=== PATIENT | female | born 1960 | race Caucasian/White ===

== ENCOUNTER → 2016-11-09 | Outpatient (CLI) | payer BC ==
--- NOTE | 2016-11-09 14:45 | REP ---
Clinical: Postmenopausal bleeding . Technique: Transabdominal pelvic ultrasound followed by transvaginal examination for better evaluation of the endometrium and adnexa. Findings: Bladder is unremarkable and measures 10.1 x 9.7 x 7.0 cm . Normal retroverted uterus measures 7.5 x 4.3 x 4.4 cm. The endometrial complex measures 7.4 mm thickness. No discrete uterine or endometrial abnormalities are appreciated. Bilateral ovaries are normal in appearance and vascularity without evidence for torsion. Right ovary measures 1.9 x 1.4 x 1.9 cm. Left ovary measures 2.2 x 1.0 x 1.7 cm. No pelvic fluid or adnexal mass lesion. Impression: Minimally thickened endometrial complex without discrete abnormality. Findings may be secondary to hormone replacement therapy require correlation.
== END ==
LOC: M WHC 10:22
PROVIDERS: ATTEND Family Medicine
DX: N95.0 Postmenopausal bleeding (principal)

== ENCOUNTER → 2016-11-30 | Outpatient (REF) | payer BC | LOC: M SFHCWAGY 14:26 | PROVIDERS: ATTEND Family Medicine | DX: N95.0 Postmenopausal bleeding (principal) ==

== ENCOUNTER → 2017-01-11 | Day surgery (SDC) | payer BC ==
[~2017-01-11] VITALS: Ht 172.7 cm; Wt 69.4 kg
[~2017-01-11] MED LIST: LIDOCAINE 1% SDV 5 ML VIAL SQ ONE; LIDOCAINE 2% INJ 100 MG/5 ML SDV (FOR ANES.) As Ordered ONE; LR 1,000 ML IV ONE; LR 1,000 ML IV SCH; MIDAZOLAM INJ 2 MG/2 ML VIAL (J2250) As Ordered ONE; MULT1TAB10 PO; ONDANSETRON 4MG/2ML VIAL (J2405) As Ordered ONE; ONDANSETRON 4MG/2ML VIAL (J2405) IV PRN; PERCOCET 5MG/325MG TAB PO PRN; PROPOFOL 200 MG/20 ML VIAL As Ordered ONE; SYNT100T PO; ZYRT10CA PO; dexameTHASONE 4 MG/ML 1ML VIAL (J1100) As Ordered ONE; fentaNYL 100 MCG/2 ML INJECTION (J3010) As Ordered ONE; fentaNYL 100 MCG/2 ML INJECTION (J3010) IV PRN
[2017-01-11 12:29] LABS: MEAN CORPUSCULAR HEMOGLOBIN 32.2 pg (27.0-33.0); MEAN CORPUSCULAR HGB CONC 33.9 g/dl (32.0-36.5); MEAN CORPUSCULAR VOLUME 95.1 fl (80.0-96.0); RED CELL DISTRIBUTION WIDTH 12.7 % (11.5-14.5); WHITE BLOOD COUNT 4.8 K/mm3 (4.0-10.0)
[2017-01-11 17:05] VITALS: BP 150/69
--- NOTE | 2017-01-13 08:30 | RO ---
DATE OF PROCEDURE: 01/11/2017 PREOPERATIVE DIAGNOSIS: Postmenopausal bleeding. POSTOPERATIVE DIAGNOSIS: Postmenopausal bleeding. PROCEDURE PERFORMED: Diagnostic hysteroscopy dilatation and curettage. SURGEON: Porter Boston DO DATA KEYER: None. ANESTHESIA TYPE: General via LMA. SPECIMENS SENT TO PATHOLOGY: Intrauterine tissue/curettings, scant amount of tissue obtained. ESTIMATED BLOOD LOSS: Less than 5 mL. FLUIDS REPLACED: 1 liter of Lactated Ringer's. DRAINS: In and out catheter, 100 mL urine output. COMPLICATIONS: None. PREOPERATIVE ANTIBIOTICS: None indicated. INTRAOPERATIVE FINDINGS: Minimal endometrial tissue was noted on hysteroscopic examination consistent with atrophic lining. There was no mass intrauterine mass or polyp, scant amount of tissue was obtained during the curetting. INDICATION: Patient is a 56-year-old who is postmenopausal for several years. She had one episode of light postmenopausal bleeding back in late October or early November. Since then, she has had no additional bleeding. In office attempt at a [place] endometrial biopsy revealed scant amount of tissue and it was felt that this was an insufficient evaluation. She therefore came to me in consultation and we decided to proceed with hysteroscopy dilatation and curettage for a better evaluation. DESCRIPTION OF PROCEDURE: The patient was counseled and consented on the risks, benefits, indications and alternatives of the procedure. Informed consent was obtained. She was taken to the operating room with an IV running and placed on the operating table in dorsal supine position. General anesthesia was administered and the airway was secured without any difficulty. She was placed in low lithotomy position. She was prepared and draped in a normal sterile fashion. A time out was performed per protocol. The bladder was drained with in and out catheter under sterile conditions. A sterile speculum was placed with good visualization of the cervix. The anterior lip of the cervix was grasped with a single-tooth tenaculum and downward traction was applied. The lacrimal duct probes were used to initiate the cervical dilation given the postmenopausal status and stenotic cervical os. After the lacrimal duct probes were used, the cervix was then sequentially dilated up to a De dilator, a number 13. The uterus was noted to be retroverted and retroflexed upon uterine sounding. The uterus sounded to 7 cm. The hysteroscope was placed transcervically into the intrauterine cavity and escrow representative images of the above findings were taken. Given the lack of endometrial tissue or significant findings/mass/polyp, the hysteroscope was removed. Sharp curettage was performed throughout each quadrant of the intrauterine cavity with minimal tissue return. This was consistent with the hysteroscope findings. The minimal tissue and blood clot that was removed from the intrauterine cavity was sent to pathology for cytologic evaluation/permanent section. The curette was removed. The hysteroscope was placed transcervically into the intrauterine cavity for one additional inspection. The intrauterine cavity was again noted to have minimal tissue. Minimal bleeding from the intrauterine cavity was noted. No evidence of uterine perforation. The hysteroscope was removed. The single-tooth tenaculum was removed. Tenaculum sites were noted to be hemostatic. All instruments and sponges were accounted for. All instruments were removed from the vagina. The patient tolerated the entire procedure well. She was transferred to postanesthesia care unit (PACU) in good and stable condition.
== END | disposition home or self-care (01) ==
LOC: M SDC 11:45
PROVIDERS: ATTEND Obstetrics & Gynecology
DX: N95.0 Postmenopausal bleeding (principal); E03.9 Hypothyroidism, unspecified; M12.9 Arthropathy, unspecified; M65.821 Other synovitis and tenosynovitis, right upper arm; M65.851 Other synovitis and tenosynovitis, right thigh; Z79.899 Other long term (current) drug therapy
CPT/HCPCS: 36415; 58558; 85027; 86850; 86900; 86901; 88305; J1100; J2250; J2405; J3010

== ENCOUNTER → 2017-07-19 | Outpatient (REF) | payer BC | LOC: M SFHCWAGY 12:59 | DX: Z12.4 Encounter for screening for malignant neoplasm of cervix (principal) ==

== ENCOUNTER → 2017-07-19 | Outpatient (CLI) | payer BC | LOC: M WHC 08:17 | DX: Z12.31 Encounter for screening mammogram for malignant neoplasm of breast (principal); Z78.0 Asymptomatic menopausal state | CPT/HCPCS: G0123 ==

== ENCOUNTER → 2018-07-25 | Outpatient (CLI) | payer BC ==
[~2018-07-25] MED LIST changes: -LIDOCAINE 1% SDV 5 ML VIAL SQ ONE; -LIDOCAINE 2% INJ 100 MG/5 ML SDV (FOR ANES.) As Ordered ONE; -LR 1,000 ML IV ONE; -LR 1,000 ML IV SCH; -MIDAZOLAM INJ 2 MG/2 ML VIAL (J2250) As Ordered ONE; -ONDANSETRON 4MG/2ML VIAL (J2405) As Ordered ONE; -ONDANSETRON 4MG/2ML VIAL (J2405) IV PRN; -PERCOCET 5MG/325MG TAB PO PRN; -PROPOFOL 200 MG/20 ML VIAL As Ordered ONE; -dexameTHASONE 4 MG/ML 1ML VIAL (J1100) As Ordered ONE; -fentaNYL 100 MCG/2 ML INJECTION (J3010) As Ordered ONE; -fentaNYL 100 MCG/2 ML INJECTION (J3010) IV PRN
--- NOTE | 2018-07-25 13:34 | REPMRS ---
Patient History The patient states she has not had a clinical breast exam in over a year. Family history of breast cancer at age 50 in sister, breast cancer at age 50 or over in maternal aunt, breast cancer at age 50 or over in paternal aunt, prostate cancer at age 50 or over in father. Benign excisional biopsy of the right breast. Took estrogen for 5 years 6 months. Digital Woman Screen Mammo: July 25, 2018 - Exam #: [id number] Bilateral CC and MLO view(s) were taken. Technologist: Erica Peace, Technologist Prior study comparison: July 19, 2017, digital woman screen mammo performed at [facility]. July 07, 2015, digital woman screen mammo performed at [facility]. July 29, 2014, digital woman screen mammo performed at [facility]. FINDINGS: The breast tissue is heterogeneously dense. This may lower the sensitivity of mammography. There is a moderate amount of heterogeneously dense fibroglandular tissue which is fairly symmetric. There is no interval development of dominant mass, architectural distortion, or clustered microcalcification typical of malignancy. There has been no change in the appearance of the mammogram from the prior studies. 3-D tomosynthesis shows no additional findings. Assessment: BI-RADS/ACR category 1 mammogram. Negative Mammogram. Recommendation Routine screening mammogram of both breasts in 1 year (for women over age 40). This patient's Lifetime Breast Cancer RIsk is estimated at 17.5 %. This mammogram was interpreted with the aid of an FDA-approved computer-aided dectection system. Electronically Signed By: Adalid Washington MD 07/25/18 1369
== END ==
LOC: M WHC 09:12
PROVIDERS: ATTEND Family Medicine
DX: Z12.31 Encounter for screening mammogram for malignant neoplasm of breast (principal)

== ENCOUNTER → 2018-07-25 | Outpatient (REF) | payer BC | LOC: M LAB REF 18:44 | PROVIDERS: ATTEND Family Medicine | DX: Z12.4 Encounter for screening for malignant neoplasm of cervix (principal); N72 Inflammatory disease of cervix uteri ==

== ENCOUNTER → 2018-07-25 | Outpatient (REF) | payer BC | LOC: M SFHCWAGY 11:58 | PROVIDERS: ATTEND Family Medicine | DX: Z12.4 Encounter for screening for malignant neoplasm of cervix (principal) ==

== ENCOUNTER → 2020-04-19 | Outpatient (CLI) | payer OTHER ==
--- NOTE | 2020-04-19 15:39 | REPMRS ---
Patient History The patient states she had a clinical breast exam in April 2020. Family history of breast cancer at age 50 in sister, breast cancer at age 50 or over in maternal aunt, breast cancer at age 50 or over in paternal aunt, prostate cancer at age 50 or over in father. Benign excisional biopsy of the right breast. Took estrogen for 5 years 6 months. 3D TOMOSYNTHESIS WAS PERFORMED. [facility] lifetime risk for breast cancer is 16.6%. Volpara breast density c. Digital Woman Screen Mammo: April 19, 2020 - Exam #: [id number] Bilateral CC and MLO view(s) were taken. Technologist: Sherri Pascual, Technologist Prior study comparison: July 25, 2018, bilateral digital woman screen mammo performed at [facility]. July 19, 2017, digital woman screen mammo performed at [facility]. FINDINGS: The breast tissue is heterogeneously dense. This may lower the sensitivity of mammography. There has been no change in the appearance of the mammogram from the prior studies. There is a moderate amount of residual fibroglandular tissue which is fairly symmetric. There is no interval development of dominant mass, areas of architectural distortion, or clustered microcalcification typical of malignancy. Assessment: BI-RADS/ACR category 1 mammogram. Negative Mammogram. Recommendation Routine screening mammogram in 1 year (for women over age 40). This mammogram was interpreted with the aid of an FDA-approved computer-aided dectection system. Electronically Signed By: Nicanor Frances MD 04/19/20 1353
== END ==
LOC: M WHC 13:46
PROVIDERS: ATTEND Nurse Practitioner Women's Health
DX: Z12.31 Encounter for screening mammogram for malignant neoplasm of breast (principal); Z80.3 Family history of malignant neoplasm of breast

== ENCOUNTER 2021-01-01 06:38 | Emergency (ER) | payer OTHER ==
[~2021-01-01] VITALS: Ht 172.7 cm; Wt 70.5 kg
[2021-01-01 07:46] LABS: BASO % 0.4 % (0.0-1.0); EOS % 0.2 % (0.0-3.0); HEMATOCRIT 38.3 % (36.0-47.0); HEMOGLOBIN 13.3 g/dl (12.0-15.5); LYMPH # 0.6 10^3/uL (1.5-5.0); LYMPH % 12.4 % (24.0-44.0); MEAN CORPUSCULAR HGB CONC 34.7 g/dl (32.0-36.5); MEAN CORPUSCULAR VOLUME 92.3 fl (80.0-96.0); MONO # 0.4 10^3/uL (0.0-0.8); MONO % 9.2 % (2.0-8.0); NEUTROPHILS # 3.7 10^3/uL (1.5-8.5); NEUTROPHILS % 77.6 % (36.0-66.0); PLATELET COUNT, AUTOMATED 156 10^3/uL (150-450); RED BLOOD COUNT 4.15 10^6/uL (4.00-5.40); WHITE BLOOD COUNT 4.8 10^3/uL (4.0-10.0)
[2021-01-01 08:16] LABS: BLOOD UREA NITROGEN 9 MG/DL (7-18); CALCIUM LEVEL 8.5 MG/DL (8.8-10.2); CARBON DIOXIDE LEVEL 25 MEQ/L (21-32); CHLORIDE LEVEL 106 MEQ/L (98-107); CK-MB VALUE MASS < 1.0 NG/ML (<3.6); CPK CREATINE PHOSPHOKINASE 61 U/L (26-192); CREATININE FOR GFR 0.85 MG/DL (0.55-1.30); GLOMERULAR FILTRATION RATE > 60.0 (>45); GLUCOSE, FASTING 110 MG/DL (70-100); MB/CK RELATIVE INDEX 1.64 (< OR =4); POTASSIUM SERUM 4.3 MEQ/L (3.5-5.1); SODIUM LEVEL 138 MEQ/L (136-145); THYROID STIMULATING HORMONE 0.507 uIU/ML (0.358-3.740); TROPONIN I < 0.02 NG/ML (< 0.10)
[2021-01-01 10:16] LABS: ERYTHROCYTE SEDIMENTATION RATE 20 mm/hr (0-30)
[2021-01-01] MEDS ORDERED: DOXY1CAP62 PO (10:37)
[2021-01-01] MEDS ORDERED: DOXYCYCLINE HYCLATE 100MG TABLET PO ONE (10:40)
[2021-01-01 10:45] VITALS: BP 124/58
--- NOTE | 2021-01-01 22:08 | ECGEPIP ---
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
[2021-01-04 18:07] LABS: Lyme Disease IgG/IgM Antibodie <0.91 ISR (0.00-0.90); Lyme Disease IgM Ab Quantitati <0.80 index (0.00-0.79)
== END 2021-01-01 10:58 | disposition home or self-care (01) ==
LOC: M ED 06:38
DX: L03.116 Cellulitis of left lower limb (principal); E07.9 Disorder of thyroid, unspecified; Z79.899 Other long term (current) drug therapy; Z79.890 Hormone replacement therapy

== ENCOUNTER → 2021-07-27 | Outpatient (REF) | payer OTHER ==
[~2021-07-27] MED LIST changes: +DOXY-443 PO
== END ==
LOC: M PLALAB 09:02
PROVIDERS: ATTEND Advanced Practice Midwife
DX: Z12.4 Encounter for screening for malignant neoplasm of cervix (principal); N95.2 Postmenopausal atrophic vaginitis

== ENCOUNTER → 2021-07-27 | Outpatient (CLI) | payer OTHER | LOC: M WHC 08:55 | PROVIDERS: ATTEND Advanced Practice Midwife | DX: Z12.31 Encounter for screening mammogram for malignant neoplasm of breast (principal) ==

== ENCOUNTER → 2022-01-25 | Outpatient (CLI) | payer OTHER ==
[2022-01-25 16:37] LABS: BLOOD UREA NITROGEN 17 MG/DL (7-18); CALCIUM LEVEL 9.4 MG/DL (8.8-10.2); CARBON DIOXIDE LEVEL 28 MEQ/L (21-32); CHLORIDE LEVEL 105 MEQ/L (98-107); CREATININE FOR GFR 0.91 MG/DL (0.55-1.30); GLOMERULAR FILTRATION RATE > 60.0 (>45); GLUCOSE, FASTING 94 MG/DL (70-100); POTASSIUM SERUM 4.9 MEQ/L (3.5-5.1); SODIUM LEVEL 138 MEQ/L (136-145)
== END ==
LOC: M PLALAB 09:12
PROVIDERS: ATTEND Advanced Practice Midwife
DX: Z91.89 Other specified personal risk factors, not elsewhere classified (principal)

== ENCOUNTER → 2022-02-05 | Outpatient (CLI) | payer OTHER ==
[~2022-02-05] MED LIST changes: +PROHANCE 279.3MG/ML 15ML VIAL ONE
== END ==
LOC: M PLAIMG 12:53
PROVIDERS: ATTEND Advanced Practice Midwife
DX: Z12.39 Encounter for other screening for malignant neoplasm of breast (principal); Z91.89 Other specified personal risk factors, not elsewhere classified; N63.13 Unspecified lump in the right breast, lower outer quadrant
CPT/HCPCS: 77049; A9576

== ENCOUNTER → 2022-02-12 | Outpatient (CLI) | payer OTHER ==
[~2022-02-12] MED LIST changes: -PROHANCE 279.3MG/ML 15ML VIAL ONE
== END ==
LOC: M RAD 07:03
PROVIDERS: ATTEND Physician Assistant
DX: D73.89 Other diseases of spleen (principal); R93.2 Abnormal findings on diagnostic imaging of liver and biliary tract

== ENCOUNTER → 2022-02-22 | Outpatient (CLI) | payer OTHER | LOC: M PLAIMG 14:55 | PROVIDERS: ATTEND Nurse Practitioner Women's Health | DX: R92.8 Other abnormal and inconclusive findings on diagnostic imaging of breast (principal) ==

== ENCOUNTER → 2022-02-28 | Outpatient (CLI) | payer OTHER ==
[~2022-02-28] MED LIST changes: +ISOVUE-370 76% 100ML VIAL As Ordered ONE
== END ==
LOC: M RAD 17:00
PROVIDERS: ATTEND Nurse Practitioner Women's Health
DX: R92.8 Other abnormal and inconclusive findings on diagnostic imaging of breast (principal)
CPT/HCPCS: 71260; Q9967

== ENCOUNTER → 2022-04-08 | Outpatient (CLI) | payer OTHER ==
[~2022-04-08] MED LIST changes: -ISOVUE-370 76% 100ML VIAL As Ordered ONE
== END ==
LOC: M LABSMTC 10:24
PROVIDERS: ATTEND Anesthesiology
DX: Z01.812 Encounter for preprocedural laboratory examination (principal); Z11.52 Encounter for screening for COVID-19

== ENCOUNTER 2022-04-09 06:27 | Day surgery (SDC) | payer OTHER ==
[~2022-04-09] VITALS: Ht 172.7 cm; Wt 72.6 kg
[~2022-04-09 06:27] MED LIST changes: +NS 1,000 ML IV ONE
[2022-04-09] MEDS ORDERED: GLUCAGON INJ 1MG VIAL As Ordered ONE (14:05)
[2022-04-09 14:50] VITALS: BP 145/65
== END 2022-04-09 15:00 | disposition home or self-care (01) ==
LOC: M OPP 06:27 → M SDC 12:36
PROVIDERS: ATTEND Internal Medicine Gastroenterology
DX: Z12.11 Encounter for screening for malignant neoplasm of colon (principal); D12.3 Benign neoplasm of transverse colon; Z79.899 Other long term (current) drug therapy; Z79.2 Long term (current) use of antibiotics; Z88.8 Allergy status to other drugs, medicaments and biological substances; E03.9 Hypothyroidism, unspecified
CPT/HCPCS: 45381; 45385; 88305; J1610

== ENCOUNTER → 2022-05-18 | Outpatient (CLI) | payer OTHER ==
[~2022-05-18] MED LIST changes: -NS 1,000 ML IV ONE
== END ==
LOC: M WUC 14:57
PROVIDERS: ATTEND Physician Assistant
DX: M25.562 Pain in left knee (principal)

== ENCOUNTER 2022-12-03 10:47 | Day surgery (SDC) | payer OTHER ==
[~2022-12-03] VITALS: Ht 172.7 cm; Wt 70.3 kg
[~2022-12-03 10:47] MED LIST changes: +LIDOCAINE 2% 100MG/5ML SDV (FOR ANES.) As Ordered ONE; +NS 1,000 ML IV ONE; +SYNT125T PO; +propofoL 200 MG/20 ML VIAL As Ordered ONE
[2022-12-03] MEDS ORDERED: propofoL 200 MG/20 ML VIAL As Ordered ONE ×2 (12:04→13:26)
[2022-12-03 13:55] VITALS: BP 155/70; O2SAT 100
== END 2022-12-03 12:42 | disposition home or self-care (01) ==
LOC: M OPP 10:47
PROVIDERS: ATTEND Internal Medicine Gastroenterology
DX: Z86.010 Personal history of colon polyps (principal); Z09 Encounter for follow-up examination after completed treatment for conditions other than malignant neoplasm; D12.3 Benign neoplasm of transverse colon; Z98.890 Other specified postprocedural states; Z79.890 Hormone replacement therapy

== ENCOUNTER → 2023-07-04 | Outpatient (REF) | payer OTHER, MEDICAID ==
[~2023-07-04] MED LIST changes: -LIDOCAINE 2% 100MG/5ML SDV (FOR ANES.) As Ordered ONE; -NS 1,000 ML IV ONE; -propofoL 200 MG/20 ML VIAL As Ordered ONE
== END ==
LOC: M SFHCDERM 17:32
PROVIDERS: ATTEND Physician Assistant
DX: L82.1 Other seborrheic keratosis (principal)

== ENCOUNTER → 2023-11-20 | Outpatient (CLI) | payer OTHER ==
[~2023-11-20] MED LIST changes: +DOXY-323 PO; -DOXY-443 PO
== END ==
LOC: M WHC 08:04
PROVIDERS: ATTEND Advanced Practice Midwife
DX: Z12.31 Encounter for screening mammogram for malignant neoplasm of breast (principal)

== ENCOUNTER → 2025-01-15 | Outpatient (REF) | payer MEDICARE ==
[~2025-01-15] MED LIST changes: -DOXY-323 PO; +DOXY-441 PO
[2025-01-19 13:28] LABS: HPV APTIMA Not Detected (Not Detected)
== END ==
LOC: M PLALAB 10:47
PROVIDERS: ATTEND Advanced Practice Midwife
DX: Z12.4 Encounter for screening for malignant neoplasm of cervix (principal); N76.89 Other specified inflammation of vagina and vulva
CPT/HCPCS: 87624; G0123

== ENCOUNTER → 2025-01-15 | Outpatient (CLI) | payer MEDICARE, OTHER ==
[~2025-01-15] MED LIST changes: +CETI10CH PO; +LIOT5TAB6 PO; +ROSU5TAB49 PO
== END ==
LOC: M WHC 09:32
PROVIDERS: ATTEND Advanced Practice Midwife
DX: Z12.31 Encounter for screening mammogram for malignant neoplasm of breast (principal); Z13.820 Encounter for screening for osteoporosis; R92.323 Mammographic fibroglandular density, bilateral breasts

== ENCOUNTER 2025-02-16 07:06 | Day surgery (SDC) | payer MEDICARE ==
[~2025-02-16] VITALS: Ht 172.7 cm; Wt 76.2 kg
[~2025-02-16 07:06] MED LIST changes: +LIDOCAINE 2% 100 MG/5 ML SDV (FOR ANES.) As Ordered ONE
[2025-02-16 08:57] VITALS: BP 136/78; O2SAT 99
== END 2025-02-16 09:02 | disposition home or self-care (01) ==
LOC: M OPP 07:06
PROVIDERS: ATTEND Internal Medicine Gastroenterology
DX: D12.3 Benign neoplasm of transverse colon (principal); Z86.0100 Personal history of colon polyps, unspecified; Z79.899 Other long term (current) drug therapy